=== PATIENT | female | born 1950 | race Caucasian/White ===

== ENCOUNTER 2017-07-22 05:53 | Outpatient (CLI) | payer MEDICARE ==
[~2017-07-22] VITALS: Ht 162.6 cm; Wt 76.2 kg
[2017-07-22] MEDS ORDERED: CETI10TA20 PO (15:07)
[2017-07-22] MEDS ORDERED: CALC-250 PO (15:07)
[2017-07-22] MEDS ORDERED: IBAN3DIS IV (15:07)
[2017-07-22] MEDS ORDERED: SIMV40TA4 PO (15:07)
[2017-07-22] MEDS ORDERED: INFL100V IV (15:07)
[2017-07-22] MEDS ORDERED: PANT40TA3 PO (15:07)
[2017-07-22] MEDS ORDERED: BRIM5DRO2 OP (15:07)
[2017-07-22] MEDS ORDERED: TRAV5DRO OP (15:07)
[2017-07-22] MEDS ORDERED: SUCR1TAB36 PO (15:07)
[2017-07-22] MEDS ORDERED: AZAT50TA PO (15:07)
[2017-07-22] MEDS ORDERED: DOCU100T7 PO (15:07)
[2017-07-24] MEDS ORDERED: ACHD5005 PO (10:56)
== END 2017-07-22 15:18 ==
LOC: PREOP 05:53
PROVIDERS: ATTEND Surgery
DX: Z01.818 Encounter for other preprocedural examination (principal); C44.629 Squamous cell carcinoma of skin of left upper limb, including shoulder